=== PATIENT | male | born 1970 | race Two or more races ===

== ENCOUNTER 2017-01-30 16:19 | Inpatient (IN) | payer OTHER ==
[2017-01-30 16:29] VITALS: BMI 19.8
--- NOTE | 2017-01-30 16:29 | HP ---
COWS - Scale Resting Pulse: 1= [place] 81-100 Sweatin=Flushed/Facial Moisture Restless Observation: 3= Extraneous Movement Pupil Size: 2= Moderately Dilated Bone or Joint Aches: 2= Severe Diffuse Aches Runny Nose/ Eye Tearin= Runny Nose/Eyes GI Upset > 30mins: 3= Vomiting/Diarrhea Tremor Observation: 2= Slight Tremor Visible Yawning Observation: 2= >3x During Session Anxiety or Irritability: 2=Irritable/Anxious Goose Flesh Skin: 0=Smooth Skin COWS Score: 21 CIWA Score - CIWA Score Nausea/Vomitin Muscle Tremors: 3 Anxiety: 3 Agitation: 3 Paroxysmal Sweats: 2 Orientation: 0-Oriented Tacttile Disturbances: 2-Mild Itch/Numbness/Burn Auditory Disturbances: 2-Mild Harshness/Frighten Visual Disturbances: 2-Mild Sensitivity Headache: 2-Mild CIWA-Ar Total Score: 22 Admission ROS BHS - HPI Chief Complaint: i need help to stop using heroin and alcohol Allergies/Adverse Reactions: Allergies Allergy/AdvReac Type Severity Reaction Status Date / Time No Known Allergies Allergy Verified 01/30/17 18:43 History of Present Illness: this 46 years old male with heroin and alcohol dependence,seeking detox,last detox 08/07 [facility] several admissions in the past but relapsed nicotine dependence longest period of sobriety 2 years Exam Limitations: No Limitations - Ebola screening Have you traveled outside of the country in the last 21 days: No Have you had contact with anyone from an Ebola affected area: No Do you have a fever: No - Review of Systems Constitutional: Chills, Diaphoresis, Loss of Appetite, Malaise, Night Sweats, Changes in sleep, Weakness, Unintentional Wgt. Loss EENT: reports: Tearing, Nose Congestion Respiratory: reports: No Symptoms reported GI: reports: Diarrhea, Nausea, Poor Fluid Intake, Vomiting : reports: No Symptoms Reported Musculoskeletal: reports: Back Pain, Joint Pain, Muscle Pain, Joint Stiffness Integumentary: reports: Dryness Neuro: reports: Headache, Tremors Endocrine: reports: No Symptoms Reported Hematology: reports: No Symptoms Reported Psychiatric: reports: No Sypmtoms Reported, Judgement Intact, Mood/Affect Appropiate, Depressed Patient History - Patient Medical History Hx Anemia: No Hx Asthma: No Hx Chronic Obstructive Pulmonary Disease (COPD): No Hx Cancer: No Hx Cardiac Disorders: No Hx Congestive Heart Failure: No Hx Hypertension: No Hx Hypercholesterolemia: No Hx Pacemaker: No HX Cerebrovascular Accident: No Hx Seizures: No Hx Diabetes: No Hx Gastrointestinal Disorders: No Hx Genitourinary Disorders: No Hx Sexually Transmitted Disorders: No Hx Renal Disease (ESRD): No Hx Thyroid Disease: No Hx Human Immunodeficiency Virus (HIV): No (NEGATIVE HX last 01/06) Hx Hepatitis C: No Hx Depression: No Hx Suicide Attempt: No Hx Bipolar Disorder: No Hx Schizophrenia: No Other Medical History: no suicidal,no homicidal - Patient Surgical History Past Surgical History: Yes Hx Neurologic Surgery: No Hx Cataract Extraction: No Hx Cardiac Surgery: No Hx Lung Surgery: No Hx Breast Surgery: No Hx Breast Biopsy: No Hx Abdominal Surgery: No Hx Appendectomy: No Hx Cholecystectomy: No Hx Genitourinary Surgery: No Hx Section: No Hx Orthopedic Surgery: No Hx Hysterectomy: No Other Surgical History: ORAL SX DUE TO TRUAMA--WIRES AND SCREWS TO UPPER JAW.in 2015 Anesthesia Reaction: No - PPD History Previous Implant?: Yes Date: 04/19/16 Results: 0 mm PPD to be Administered?: No - Smoking Cessation Smoking history: Current every day smoker Have you smoked in the past 12 months: Yes Aproximately how many cigarettes per day: 2 Hx Chewing Tobacco Use: No Initiated information on smoking cessation: Yes 'Breaking Loose' booklet given: 01/30/17 - Substance & Tx. History Hx Alcohol Use: Yes Hx Substance Use: Yes Substance Use Type: Alcohol, Heroin Hx Substance Use Treatment: Yes ([facility] 08/07) - Substances Abused Heroin Route: Injection Frequency: Daily Amount used: 10 bags Age of first use: 19 Date of Last Use: 01/29/17 Alcohol Route: Oral Frequency: Daily Amount used: 2pints of vodka/6 packs of 24 ozs of beer Age of first use: 26 Date of Last Use: 01/30/17 Family Disease History - Family Disease History Family History: Denies Admission Physical Exam BHS - Vital Signs Vital Signs: Vital Signs Temperature 98.4 F 01/30/17 16:39 Pulse Rate 85 01/30/17 16:39 Respiratory Rate 20 01/30/17 16:39 Blood Pressure 116/74 01/30/17 16:39 O2 Sat by Pulse Oximetry (%) - Physical General Appearance: Yes: Moderate Distress, Tremorous, Irritable, Sweating, Anxious HEENTM: Yes: Normal ENT Inspection, CAREY, Pharynx Normal Respiratory: Yes: Lungs Clear, Normal Breath Sounds, No Respiratory Distress Neck: Yes: Within Normal Limits, Supple, Trachea in good position Breast: Yes: Within Normal Limits Cardiology: Yes: Within Normal Limits, Regular Rhythm, Regular Rate, S1, S2 Abdominal: Yes: Within Normal Limits, Normal Bowel Sounds, Non Tender, Soft Genitourinary: Yes: Within Normal Limits Back: Yes: Normal Inspection, Decreased Range of Motion, Muscle Spasm Musculoskeletal: Yes: full range of Motion, Back pain, Joint Stiffness, Muscle Pain Extremities: Yes: Tremors 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, Fully Oriented, Alert, Motor Strength 5/5 Integumentary: Yes: Dry, Track Jara Lymphatic: Yes: Within Normal Limits - Diagnostic (1) Alcohol dependence with uncomplicated withdrawal Current Visit: No Status: Acute (2) Opioid dependence with withdrawal Current Visit: No Status: Acute (3) Depression Current Visit: Yes Status: Acute (4) Nicotine dependence Current Visit: Yes Status: Acute Cleared for Admission [facility] - Detox or Rehab [facility] Level of Care: Medically Managed Detox Regimen/Protocol: Methadone/Librium S Breath Alcohol Content Breath Alcohol Content: 0.046 Vital Signs - Vital Signs Vital Signs Refused: No Temperature: 98.4 F Temperature Source: Oral Pulse Rate: 85 Respiratory Rate: 20 Blood Pressure: 116/74 BP Location: Left Arm - Height Height: 5 ft 6 in - Weight Weight: 123 lb Weight Measurement Method: Standing Scale Body Mass Index (BMI): 19.8 Urine Drug Screen - Test Device Lot Number: [id number] Expiration Date: 07/22/18 - Control Is Test Valid: Yes - Results Drug Screen Negative: No Urine Drug Screen Results: OPI-Opiates, MTD-Methadone
[2017-01-30] MEDS ORDERED: MAGNESIUM CITRATE 300 ML BOTTLE PO PRN (16:49)
[2017-01-30] MEDS ORDERED: METHADONE HCL 10 MG TABLET (FOR DETOX USE ONLY) PO ONE ×2 (16:49→23:00)
[2017-01-30] MEDS ORDERED: MAGNESIUM HYDROX 2400MG/30ML ORAL SUSPENSION 30 ML CUP PO PRN (16:49)
[2017-01-30] MEDS ORDERED: MENTHOL/PHENOL 1 EACH UD MM PRN (16:49)
[2017-01-30] MEDS ORDERED: hydrOXYzine PAMOATE 50 MG CAPSULE (FP) PO PRN (16:49)
[2017-01-30] MEDS ORDERED: P-EPHED 60MG/TRIPROLIDI 2.5MG TABLET PO PRN (16:49)
[2017-01-30] MEDS ORDERED: MAG HYDROX/AL HYDROX/SIMETH 30 ML UNIT-DOSE CUP PO PRN (16:49)
[2017-01-30] MEDS ORDERED: IBUPROFEN 400 MG TABLET (FP) PO PRN (16:49)
[2017-01-30] MEDS ORDERED: ACETAMINOPHEN 325 MG TABLET (FP) PO PRN (16:49)
[2017-01-30] MEDS ORDERED: chlordiazePOXIDE HCL 25 MG CAPSULE PO PRN (16:49)
[2017-01-30] MEDS ORDERED: guaiFENesin/D-METHORPHAN HB 10 ML UNIT-DOSE CUPS PO PRN (16:49)
[2017-01-30] MEDS ORDERED: chlordiazePOXIDE HCL 25 MG CAPSULE PO ONE (16:49)
[2017-01-30] MEDS ORDERED: CYCLOBENZAPRINE HCL 10 MG TABLET (FP) PO PRN (16:53)
[2017-01-30] MEDS: chlordiazePOXIDE HCL 25 MG CAPSULE PO SCH (22:18)
[2017-01-30] MEDS: THIAMINE HCL 100 MG TABLET (FP) PO SCH (22:18)
[2017-01-30] MEDS: cloNIDine HCL 0.1 MG TABLET PO SCH (22:48)
[2017-01-31] MEDS: diphenhydrAMINE HCL 50 MG CAPSULE PO PRN ×2 (00:40→02:02)
[2017-01-31] MEDS: chlordiazePOXIDE HCL 25 MG CAPSULE PO SCH ×4 (05:37→22:01)
--- NOTE | 2017-01-31 09:49 | PN ---
[facility] CIWA - CIWA Score Nausea/Vomitin Muscle Tremors: 3 Anxiety: 3 Agitation: 3 Paroxysmal Sweats: 1-Minimal Palms Moist Orientation: 0-Oriented Tacttile Disturbances: 1-Very Mild Itch/Numbness Auditory Disturbances: 1-Very Mild Visual Disturbances: 1-Very Mild Sensitivity Headache: 2-Mild CIWA-Ar Total Score: 18 BHS COWS - Scale Resting Pulse: 0= [place] 80 or Below Sweatin= Chills/Flushing Restless Observation: 3= Extraneous Movement Pupil Size: 1= Pupils >than Normal Bone or Joint Aches: 2= Severe Diffuse Aches Runny Nose/ Eye Tearin= Runny Nose/Eyes GI Upset > 30mins: 3= Vomiting/Diarrhea Tremor Observation of Outstretched Hands: 2= Slight Tremor Visible Yawning Observation: 1= 1-2x During Session Anxiety or Irritability: 2=Irritable/Anxious Goose Flesh Skin: 0=Smooth Skin COWS Score: 17 S Progress Note (SOAP) Subjective: ALERT,IRRITABLE,ANXIOUS,INTERRUPTED SLEEP,TREMOR,PAIN IN BODY,JOINT AND BACK Objective: 01/31/17 09:52 Vital Signs Temperature 97.9 F 01/31/17 09:45 Pulse Rate 75 01/31/17 09:45 Respiratory Rate 16 01/31/17 09:45 Blood Pressure 111/72 01/31/17 09:45 O2 Sat by Pulse Oximetry (%) 01/31/17 09:53 EKG NSR, NO CHEST PAIN,NO SOB,NO DIZZINESS LABS PENDING Assessment: 01/31/17 09:53 WITHDRAWAL SYMPTOM Plan: CONTINUE DETOX
[2017-01-31] MEDS ORDERED: METHADONE HCL 10 MG TABLET (FOR DETOX USE ONLY) PO SCH (10:00)
[2017-01-31] MEDS: cloNIDine HCL 0.1 MG TABLET PO SCH ×3 (10:09→22:03)
[2017-01-31] MEDS: PRENATAL VITAMINS W/ FOLIC ACID TABLET (FP) PO SCH (10:09)
[2017-01-31 10:16] LABS: URINE APPEARANCE CLEAR; URINE BLOOD NEGATIVE (NEGATIVE); URINE COLOR AMBER; URINE GLUCOSE (UA) NEGATIVE (NEGATIVE); URINE KETONE NEGATIVE (NEGATIVE); URINE LEUK ESTERASE NEGATIVE (NEGATIVE); URINE NITRITE NEGATIVE (NEGATIVE); URINE PROTEIN NEGATIVE (NEGATIVE); URINE UROBILINOGEN 4.0 E.U/dl E.U./dl (0.2-1.0)
[2017-01-31 10:17] LABS: MCH 32.5 pg (25.7-33.7); MCHC 33.8 g/dl (32.0-35.9); MEAN PLT VOLUME 9.2 fl (7.5-11.1); PLATELET COUNT 95 K/MM3 (134-434); RDW 12.9 % (11.9-15.9); WHITE BLOOD COUNT 2.5 K/mm3 (4.0-10.0)
[2017-01-31 10:26] LABS: ALBUMIN 3.4 g/dl (3.4-5.0); ANION GAP 9 (8-16); CALCIUM 8.6 mg/dL (8.5-10.1); CO2 29 mmol/L (21-32); COCKROFT - GAULT 92.01; CREATININE 0.8 mg/dL (0.7-1.3); GLUCOSE,RANDOM 130 mg/dL (74-106); SGOT/AST 59 U/L (15-37); SGPT/ALT 69 U/L (12-78)
[2017-01-31 10:27] LABS: ALK PHOS 65 U/L (45-117); BILIRUBIN,TOTAL 0.8 mg/dL (0.2-1.0); TOT PROT 6.2 g/dl (6.4-8.2)
--- NOTE | 2017-01-31 15:44 | EKG ---
Test Reason : Blood Pressure : / mmHG Vent. Rate : 086 BPM Atrial Rate : 086 BPM P-R Int : 136 ms QRS Dur : 086 ms QT Int : 346 ms P-R-T Axes : 075 015 020 degrees QTc Int : 414 ms NORMAL SINUS RHYTHM POSSIBLE LEFT ATRIAL ENLARGEMENT T WAVE ABNORMALITY, CONSIDER ANTERIOR ISCHEMIA ABNORMAL ECG NO PREVIOUS ECGS AVAILABLE CLINICAL CORRELATION IS RECOMMENDED Confirmed by CECILIA PRATT MD ([id number]) on 01/31/2017 3:44:33 PM Referred By: Confirmed By:CECILIA PRATT MD
[2017-01-31] MEDS: THIAMINE HCL 100 MG TABLET (FP) PO SCH (22:01)
[2017-02-01] MEDS: chlordiazePOXIDE HCL 25 MG CAPSULE PO SCH ×3 (05:14→17:34)
--- NOTE | 2017-02-01 09:10 | PN ---
[facility] CIWA - CIWA Score Nausea/Vomitin Muscle Tremors: 3 Anxiety: 2 Agitation: 2 Paroxysmal Sweats: 1-Minimal Palms Moist Orientation: 0-Oriented Tacttile Disturbances: 1-Very Mild Itch/Numbness Auditory Disturbances: 1-Very Mild Visual Disturbances: 1-Very Mild Sensitivity Headache: 2-Mild CIWA-Ar Total Score: 16 BHS COWS - Scale Resting Pulse: 0= [place] 80 or Below Sweatin= Chills/Flushing Restless Observation: 3= Extraneous Movement Pupil Size: 1= Pupils >than Normal Bone or Joint Aches: 2= Severe Diffuse Aches Runny Nose/ Eye Tearin= Runny Nose/Eyes GI Upset > 30mins: 2= Nausea/Diarrhea Tremor Observation of Outstretched Hands: 2= Slight Tremor Visible Yawning Observation: 1= 1-2x During Session Anxiety or Irritability: 2=Irritable/Anxious Goose Flesh Skin: 0=Smooth Skin COWS Score: 16 [facility] Progress Note (SOAP) Subjective: ALERT,IRRITABLE,ANXIOUS,INTERRUPTED SLEEP,TREMOR,PAIN IN THE BODY AND BACK Objective: 02/01/17 09:07 Vital Signs Temperature 97.7 F 02/01/17 05:46 Pulse Rate 67 02/01/17 05:46 Respiratory Rate 16 02/01/17 05:46 Blood Pressure 126/73 02/01/17 05:46 O2 Sat by Pulse Oximetry (%) Laboratory Last Values WBC 2.5 K/mm3 (4.0-10.0) L D 01/31/17 08:00 RBC 3.93 M/mm3 (4.00-5.60) L 01/31/17 08:00 Hgb 12.8 GM/dL (11.7-16.9) 01/31/17 08:00 Hct 37.7 % (35.4-49) 01/31/17 08:00 MCV 96.0 fl (80-96) 01/31/17 08:00 MCHC 33.8 g/dl (32.0-35.9) 01/31/17 08:00 RDW 12.9 % (11.9-15.9) 01/31/17 08:00 Plt Count 95 K/MM3 (134-434) L D 01/31/17 08:00 MPV 9.2 fl (7.5-11.1) 01/31/17 08:00 Sodium 137 mmol/L (136-145) 01/31/17 08:00 Potassium 3.7 mmol/L (3.5-5.1) D 01/31/17 08:00 Chloride 99 mmol/L (98-107) 01/31/17 08:00 Carbon Dioxide 29 mmol/L (21-32) 01/31/17 08:00 Anion Gap 9 (8-16) 01/31/17 08:00 BUN 19 mg/dL (7-18) H D 01/31/17 08:00 Creatinine 0.8 mg/dL (0.7-1.3) 01/31/17 08:00 Creat Clearance w eGFR > 60 (>60) 01/31/17 08:00 Random Glucose 130 mg/dL (74-106) H D 01/31/17 08:00 Calcium 8.6 mg/dL (8.5-10.1) 01/31/17 08:00 Total Bilirubin 0.8 mg/dL (0.2-1.0) D 01/31/17 08:00 AST 59 U/L (15-37) H D 01/31/17 08:00 ALT 69 U/L (12-78) D 01/31/17 08:00 Alkaline Phosphatase 65 U/L (45-117) D 01/31/17 08:00 Total Protein 6.2 g/dl (6.4-8.2) L D 01/31/17 08:00 Albumin 3.4 g/dl (3.4-5.0) 01/31/17 08:00 Urine Color [place] 01/31/17 08:00 Urine Appearance Clear 01/31/17 08:00 Urine pH 6.0 (5.0-8.0) 01/31/17 08:00 Ur Specific [place] 1.020 (1.005-1.025) 01/31/17 08:00 Urine Protein Negative (NEGATIVE) 01/31/17 08:00 Urine Glucose (UA) Negative (NEGATIVE) 01/31/17 08:00 Urine Ketones Negative (NEGATIVE) 01/31/17 08:00 Urine Blood Negative (NEGATIVE) 01/31/17 08:00 Urine Nitrite Negative (NEGATIVE) 01/31/17 08:00 Urine Bilirubin 2.0 (NEGATIVE) 01/31/17 08:00 Urine Urobilinogen 4.0 e.u/dl E.U./dl (0.2-1.0) 01/31/17 08:00 Ur Leukocyte Esterase Negative (NEGATIVE) 01/31/17 08:00 RPR Titer Nonreactive (NONREACTIVE) 01/31/17 08:00 Assessment: 02/01/17 09:08 WITHDRAWAL SYMPTOM Plan: CONTINUE DETOX,REPEAT CBC INITIAL WBC IS 2.500,LEUKOPENIA,INITIAL GLUCOSE IS 130 ,FASTING GLUCOSE IN AM
[2017-02-01] MEDS: METHADONE HCL 5 MG TABLET (FOR DETOX USE ONLY) PO SCH (10:07)
[2017-02-01] MEDS: PRENATAL VITAMINS W/ FOLIC ACID TABLET (FP) PO SCH (10:07)
[2017-02-01] MEDS: cloNIDine HCL 0.1 MG TABLET PO SCH ×2 (10:07→22:16)
--- NOTE | 2017-02-01 11:30 | CONSULT ---
[facility] Psychiatric Consult - Data Date of interview: 02/01/17 Admission source: [facility] Identifying data: This is 46 years old male with no psychiatric hospitalization history intoxicated with: Alcohol Nicotine, Opioids Substance Abuse History: - Smoking Cessation. Smoking history: Current every day smoker. Have you smoked in the past 12 months: Yes. Aproximately how many cigarettes per day: 2. Hx Chewing Tobacco Use: No. Initiated information on smoking cessation: Yes. 'Breaking Loose' booklet given: 01/30/17. - Substance & Tx. History. Hx Alcohol Use: Yes. Hx Substance Use: Yes. Substance Use Type : Alcohol, Heroin. Hx Substance Use Treatment: Yes ([facility] 08/07). - Substances Abused. Heroin. Route: Injection. Frequency: Daily. Amount used: 10 bags. Age of first use: 19. Date of Last Use: 01/29/17. Alcohol. Route: Oral. Frequency: Daily. Amount used: 2pints of vodka/6 packs of 24 ozs of beer. Age of first use: 26. Date of Last Use: 01/30/17 Medical History: Denies Psychiatric History: Reports history of dperession, reports no madicatione taking prior to admission Physical/Sexual Abuse/Trauma History: Denies Additional Comment: Observation. Detox Unit Care Protocol Mental Status Exam - Mental Status Exam Alert and Oriented to: Person Cognitive Function: Fair Patient Appearance: Unkempt Mood: Sad Affect: Flat Patient Behavior: Sedated Speech Pattern: Delayed Voice Loudness: Mildly Soft/Quiet Thought Process: Circumstantial Thought Disorder: Being Controlled Hallucinations: Denies Suicidal Ideation: Denies Homicidal Ideation: Denies Insight/Judgement: Fair Sleep: Difficulty falling asleep Appetite: Fair Muscle strength/Tone: Normal Gait/Station: Shuffling Additional Comments: Observation. Detox Unit Care Protocol Psychiatric Findings - Problem List ([place] 1, 2,3) (1) Nicotine dependence Current Visit: Yes Status: Acute (2) Alcohol dependence with uncomplicated withdrawal Current Visit: No Status: Acute (3) Opioid dependence with withdrawal Current Visit: No Status: Acute (4) Drug-induced mood disorder Current Visit: Yes Status: Acute - Initial Treatment Plan Initial Treatment Plan: Observation. Detox Unit Care Protocol
[2017-02-01] MEDS: chlordiazePOXIDE 5 MG CAPSULE PO SCH (22:15)
[2017-02-01] MEDS: THIAMINE HCL 100 MG TABLET (FP) PO SCH (22:15)
[2017-02-01] MEDS: diphenhydrAMINE HCL 50 MG CAPSULE PO PRN (22:19)
[2017-02-02] MEDS: chlordiazePOXIDE 5 MG CAPSULE PO SCH ×3 (05:24→17:14)
--- NOTE | 2017-02-02 09:53 | PN ---
S Progress Note (SOAP) Subjective: ALERT,IRRITABLE,ANXIOUS,INTERRUPTED SLEEP,PAIN IN THE BODY AND BACK Objective: 02/02/17 09:51 Vital Signs Temperature 97.5 F L 02/02/17 09:32 Pulse Rate 98 H 02/02/17 09:32 Respiratory Rate 20 02/02/17 09:32 Blood Pressure 107/64 02/02/17 09:32 O2 Sat by Pulse Oximetry (%) 02/02/17 09:52 REPEAT CBC AND FASTING GLUCOSE PENDING Assessment: 02/02/17 09:53 WITHDRAWAL SYMPTOM Plan: CONTINUE DETOX
[2017-02-02 09:55] LABS: MCH 32.3 pg (25.7-33.7); MEAN PLT VOLUME 9.6 fl (7.5-11.1); PLATELET COUNT 117 K/MM3 (134-434); RDW 12.7 % (11.9-15.9)
[2017-02-02] MEDS: PRENATAL VITAMINS W/ FOLIC ACID TABLET (FP) PO SCH (10:14)
[2017-02-02] MEDS: METHADONE HCL 5 MG TABLET (FOR DETOX USE ONLY) PO SCH (10:14)
[2017-02-02] MEDS: cloNIDine HCL 0.1 MG TABLET PO SCH ×2 (10:14→22:27)
[2017-02-02] MEDS: LOPERAMIDE HCL 2 MG CAPSULE PO PRN (17:27)
[2017-02-02] MEDS: THIAMINE HCL 100 MG TABLET (FP) PO SCH (22:27)
[2017-02-02] MEDS: chlordiazePOXIDE HCL 10 MG CAPSULE PO SCH (22:27)
[2017-02-02] MEDS: diphenhydrAMINE HCL 50 MG CAPSULE PO PRN (22:28)
[2017-02-03] MEDS: chlordiazePOXIDE HCL 10 MG CAPSULE PO SCH ×3 (06:12→18:04)
[2017-02-03] MEDS ORDERED: METHADONE HCL 10 MG TABLET (FOR DETOX USE ONLY) PO SCH (10:00)
--- NOTE | 2017-02-03 10:11 | PN ---
S Progress Note (SOAP) Subjective: alert,interrupted sleep,,anxious Objective: 02/03/17 10:08 Vital Signs Temperature 97.3 F L 02/03/17 09:35 Pulse Rate 103 H 02/03/17 09:35 Respiratory Rate 18 02/03/17 09:35 Blood Pressure 129/62 02/03/17 09:35 O2 Sat by Pulse Oximetry (%) 02/03/17 10:09 fasting glucose is 88 Laboratory Results - last 24 hr 02/02/17 07:00 Fasting Glucose 88 02/03/17 10:10 Laboratory Last Values WBC 4.0 K/mm3 (4.0-10.0) D 02/02/17 07:00 RBC 4.41 M/mm3 (4.00-5.60) 02/02/17 07:00 Hgb 14.3 GM/dL (11.7-16.9) D 02/02/17 07:00 Hct 41.9 % (35.4-49) 02/02/17 07:00 MCV 95.0 fl (80-96) 02/02/17 07:00 MCHC 34.0 g/dl (32.0-35.9) 02/02/17 07:00 RDW 12.7 % (11.9-15.9) 02/02/17 07:00 Plt Count 117 K/MM3 (134-434) L D 02/02/17 07:00 MPV 9.6 fl (7.5-11.1) 02/02/17 07:00 Sodium 137 mmol/L (136-145) 01/31/17 08:00 Potassium 3.7 mmol/L (3.5-5.1) D 01/31/17 08:00 Chloride 99 mmol/L (98-107) 01/31/17 08:00 Carbon Dioxide 29 mmol/L (21-32) 01/31/17 08:00 Anion Gap 9 (8-16) 01/31/17 08:00 BUN 19 mg/dL (7-18) H D 01/31/17 08:00 Creatinine 0.8 mg/dL (0.7-1.3) 01/31/17 08:00 Creat Clearance w eGFR > 60 (>60) 01/31/17 08:00 Random Glucose 130 mg/dL (74-106) H D 01/31/17 08:00 Fasting Glucose 88 mg/dL (70-105) 02/02/17 07:00 Calcium 8.6 mg/dL (8.5-10.1) 01/31/17 08:00 Total Bilirubin 0.8 mg/dL (0.2-1.0) D 01/31/17 08:00 AST 59 U/L (15-37) H D 01/31/17 08:00 ALT 69 U/L (12-78) D 01/31/17 08:00 Alkaline Phosphatase 65 U/L (45-117) D 01/31/17 08:00 Total Protein 6.2 g/dl (6.4-8.2) L D 01/31/17 08:00 Albumin 3.4 g/dl (3.4-5.0) 01/31/17 08:00 Urine Color [place] 01/31/17 08:00 Urine Appearance Clear 01/31/17 08:00 Urine pH 6.0 (5.0-8.0) 01/31/17 08:00 Ur Specific [place] 1.020 (1.005-1.025) 01/31/17 08:00 Urine Protein Negative (NEGATIVE) 01/31/17 08:00 Urine Glucose (UA) Negative (NEGATIVE) 01/31/17 08:00 Urine Ketones Negative (NEGATIVE) 01/31/17 08:00 Urine Blood Negative (NEGATIVE) 01/31/17 08:00 Urine Nitrite Negative (NEGATIVE) 01/31/17 08:00 Urine Bilirubin 2.0 (NEGATIVE) 01/31/17 08:00 Urine Urobilinogen 4.0 e.u/dl E.U./dl (0.2-1.0) 01/31/17 08:00 Ur Leukocyte Esterase Negative (NEGATIVE) 01/31/17 08:00 RPR Titer Nonreactive (NONREACTIVE) 01/31/17 08:00 Assessment: 02/03/17 10:08 withdrawal symptom 02/03/17 10:10 Plan: continue detox,discharge in am
[2017-02-03] MEDS: PRENATAL VITAMINS W/ FOLIC ACID TABLET (FP) PO SCH (10:15)
[2017-02-03] MEDS: cloNIDine HCL 0.1 MG TABLET PO SCH ×2 (10:15→22:07)
[2017-02-03] MEDS: THIAMINE HCL 100 MG TABLET (FP) PO SCH (22:07)
[2017-02-03] MEDS: diphenhydrAMINE HCL 50 MG CAPSULE PO PRN (22:08)
[2017-02-04] MEDS ORDERED: METHADONE HCL 5 MG TABLET (FOR DETOX USE ONLY) PO SCH (06:00)
[2017-02-04] MEDS: LOPERAMIDE HCL 2 MG CAPSULE PO PRN (06:17)
--- NOTE | 2017-02-04 08:23 | PN ---
S Progress Note (SOAP) Subjective: ALERT,NO COMPLAINT Objective: 02/04/17 08:21 Vital Signs Temperature 97.9 F 02/04/17 06:11 Pulse Rate 77 02/04/17 06:11 Respiratory Rate 16 02/04/17 06:11 Blood Pressure 93/63 02/04/17 06:11 O2 Sat by Pulse Oximetry (%) Assessment: 02/04/17 08:22 DETOX COMPLETED,NO WITHDRAWAL SYMPTOM Plan: DISCHARGE TODAY,FOLLOW UP WITH AFTER CARE PROGRAM ARRANGEMENT
--- NOTE | 2017-02-04 08:25 | DS ---
[facility] Detox Discharge Summary Admission Date: 01/30/17 Discharge Date: 02/04/17 - History Present History: Cannabis Dependence, Opioid Dependence Additional Comments: FOLLOW UP WITH AFTER CARE PROGRAM ARRANGEMENT Pertinent Past History: DEPRESSION - Physical Exam Results Vital Signs: Vital Signs Temperature 97.9 F 02/04/17 06:11 Pulse Rate 77 02/04/17 06:11 Respiratory Rate 16 02/04/17 06:11 Blood Pressure 93/63 02/04/17 06:11 O2 Sat by Pulse Oximetry (%) Pertinent Admission Physical Exam Findings: WITHDRAWAL SYMPTOM - Treatment Hospital Course: Detox Protocol Followed, Detoxed Safely, Responded well, Discharged Condition Good, Rehab Referral Accepted Patient has Accepted a Rehab Referral to: [facility] - Medication Discharge Medications: Ambulatory Orders NK [No Known Home Medication] 04/17/16 - Diagnosis (1) Alcohol dependence with uncomplicated withdrawal Current Visit: No Status: Acute (2) Opioid dependence with withdrawal Current Visit: No Status: Acute (3) Depression Current Visit: Yes Status: Acute (4) Nicotine dependence Current Visit: Yes Status: Acute - AMA Did Patient Leave Against Medical Advice: No
[2017-02-04 09:43] VITALS: BP 120/67; PULSE 97; TEMP 98.1
[2017-02-04] MEDS: PRENATAL VITAMINS W/ FOLIC ACID TABLET (FP) PO SCH (10:13)
[2017-02-04] MEDS: cloNIDine HCL 0.1 MG TABLET PO SCH (10:14)
== END 2017-02-04 11:50 | disposition other institution (70) | DRG 773 ==
LOC: YASAS 16:19 → Y6N 16:47
PROVIDERS: ADMIT Internal Medicine; ATTEND Internal Medicine
PROC: HZ2ZZZZ Detoxification Services for Substance Abuse Treatment (ICD-10-PCS; principal; 2017-01-30)
DX: F11.23 Opioid dependence with withdrawal (principal); F10.230 Alcohol dependence with withdrawal, uncomplicated; F17.210 Nicotine dependence, cigarettes, uncomplicated; F32.9 Major depressive disorder, single episode, unspecified; F19.24 Other psychoactive substance dependence with psychoactive substance-induced mood disorder; Z59.0 Homelessness
CPT/HCPCS: 36415; 80053; 81003; 82947; 85027; 86593; 93005; 93010

== ENCOUNTER 2017-02-04 12:04 | Inpatient (IN) | payer OTHER ==
--- NOTE | 2017-02-04 13:47 | HP ---
Psychiatrist Admission - Data Date of interview: 02/04/17 Admission source: [facility] Identifying data: This is the second [facility] admission for this 46 years old single male, father of 2 children, unemployed with no source of income, domiciled living with his brother Medical History: Significant for history of oral surgery for fracture of jaw due to trauma(wires and screw to upper jaw), smokes 2 cigarettes a day. Psychiatric History: Denies history of previous psychiatric treatment Physical/Sexual Abuse/Trauma History: Denies history of emotional, physical or sexual abuse as well as DV relationship Additional Comment: Reportss history of 4 previous misdemeanor arrests for trespassing. Denies being on probation at present Allergies/Adverse Reactions: Allergies Allergy/AdvReac Type Severity Reaction Status Date / Time No Known Allergies Allergy Verified 01/30/17 18:43 Date of last physical exam: 01/30/17 Concur with the findings of this exam: Yes - Substance Abuse/Tx History Hx Alcohol Use: Yes Hx Substance Use: Yes Substance Use Type: Alcohol (Started drinking alcohol at age 26, consumes 2 pints of vodka & a 6pk of 24oz daily. Last drink on 01/29/17), Heroin (Started using heroin at age 19, consumes 10 bags daily. Last used on 01/29/17) Hx Substance Use Treatment: Yes ( 2 previous inpt detox & one incomplete inpt rehab @ [facility]) - Admission Criteria Previous failed treatment: Yes Poor recovery environment: Yes Comorbidities: Yes Lacks judgement: Yes Mental Status Exam - Mental Status Exam Alert and Oriented to: Time, Place, Person Cognitive Function: Fair Patient Appearance: Well Groomed Mood: Hopeful, Euthymic Patient Behavior: Cooperative Speech Pattern: Clear Voice Loudness: Normal Thought Process: Intact, Goal Oriented Thought Disorder: Not Present Hallucinations: Denies Suicidal Ideation: Denies Homicidal Ideation: Denies Insight/Judgement: Fair Sleep: Fair Appetite: Good Muscle strength/Tone: Normal Gait/Station: Normal Psychiatric Findings - Problem List ([place] 1, 2,3) (1) Alcohol dependence with uncomplicated withdrawal Current Visit: No Status: Acute (2) Opioid dependence with withdrawal Current Visit: No Status: Acute (3) Nicotine dependence Current Visit: No Status: Acute - Initial Treatment Plan Initial Treatment Plan: Monitor progress
[2017-02-04 14:16] VITALS: BMI 21.1
[2017-02-04] MEDS ORDERED: MAG HYDROX/AL HYDROX/SIMETH 30 ML UNIT-DOSE CUP PO PRN (14:20)
[2017-02-04] MEDS ORDERED: MAGNESIUM CITRATE 300 ML BOTTLE PO PRN (14:20)
[2017-02-04] MEDS ORDERED: hydrOXYzine PAMOATE 50 MG CAPSULE (FP) PO PRN (14:20)
[2017-02-04] MEDS ORDERED: MENTHOL/PHENOL 1 EACH UD MM PRN (14:20)
[2017-02-04] MEDS ORDERED: guaiFENesin/D-METHORPHAN HB 10 ML UNIT-DOSE CUPS PO PRN (14:20)
[2017-02-04] MEDS ORDERED: LOPERAMIDE HCL 2 MG CAPSULE PO PRN (14:20)
[2017-02-04] MEDS ORDERED: ACETAMINOPHEN 325 MG TABLET (FP) PO PRN (14:20)
[2017-02-04] MEDS ORDERED: diphenhydrAMINE HCL 50 MG CAPSULE PO PRN (14:20)
[2017-02-04] MEDS ORDERED: P-EPHED 60MG/TRIPROLIDI 2.5MG TABLET PO PRN (14:20)
[2017-02-04] MEDS ORDERED: MAGNESIUM HYDROX 2400MG/30ML ORAL SUSPENSION 30 ML CUP PO PRN (14:20)
[2017-02-04] MEDS ORDERED: IBUPROFEN 400 MG TABLET (FP) PO PRN (14:20)
--- NOTE | 2017-02-04 14:23 | HP ---
[facility] Rehab Assess/Revision - Admission History Admitted to Rehab from: [facility] Date of Admission to Rehab: 02/04/17 - Vital signs Vital Signs: Vital Signs Period Temp Pulse Resp BP Sys/[place] Pulse Ox Last 24 Hr 97.8 F 91 20 111/67 - Findings Detox History & Physical reviewed: Yes Concur with findings: Yes (for reha as protocol)
[2017-02-04] MEDS ORDERED: THIAMINE HCL 100 MG TABLET (FP) PO SCH (22:00)
[2017-02-05 06:49] VITALS: BP 107/80; PULSE 99; TEMP 97.7
[2017-02-05] MEDS ORDERED: PRENATAL VITAMINS W/ FOLIC ACID TABLET (FP) PO SCH (10:00)
--- NOTE | 2017-02-05 13:05 | PN ---
Psychiatric Progress Note Vital Signs: Vital Signs Period Temp Pulse Resp BP Sys/[place] Pulse Ox Last 24 Hr 97.7 F-97.8 F 91-99 18-20 107-111/67-80 Date of Session: 02/05/17 Chief Complaint:: AMA Discharge HPI: Patient addressing Alcohol and Opoid Dependence Comorbid with Nicotine Dependence Current Medications: Active Medications Generic Name Dose Route Start Last Admin Trade Name Freq PRN Reason Stop Dose Admin Acetaminophen 650 mg 02/04/17 14:20 Tylenol - PO Q4H PRN FEVER OR PAIN Al Hydroxide/Mg Hydroxide 30 ml 02/04/17 14:20 Mylanta Oral Suspension - PO Q6H PRN DYSPEPSIA Diphenhydramine HCl 50 mg 02/04/17 14:20 Benadryl - PO HSMR1 PRN FOR ITCHING Eucalyptus/Menthol/Phenol/Sorbitol 1 each 02/04/17 14:20 Cepastat Lozenge - MM Q4H PRN SORE THROAT Guaifenesin 10 ml 02/04/17 14:20 Robitussin Dm - PO Q6H PRN COUGH Hydroxyzine Pamoate 50 mg 02/04/17 14:20 Vistaril - PO Q4H PRN AGITATION Ibuprofen 400 mg 02/04/17 14:20 Motrin - PO Q6H PRN PAIN Loperamide HCl 4 mg 02/04/17 14:20 Imodium - PO Q6H PRN DIARRHEA Magnesium Citrate 300 ml 02/04/17 14:20 Citroma - PO 02/06/17 14:21 Q48H PRN CONSTIPATION Magnesium Hydroxide 30 ml 02/04/17 14:20 Milk Of Magnesia - PO DAILY PRN CONSTIPATION Multivit/Folic Acid/Iron 1 tab 02/05/17 10:00 02/05/17 10:16 Vitamins ([facility]) - PO Not Given DAILY HUAN Pseudoephedrine/Triprolidine 1 combo 02/04/17 14:20 Actifed - PO TID PRN NASAL CONGESTION Thiamine HCl 100 mg 02/04/17 22:00 02/04/17 23:16 Vitamin B1 - PO Not Given HS HUAN Current Side Effect: No Lab tests ordered: Yes Lab tests reviewed: Yes Provider note:: Patient does not want to complete this program because he cannot talk to his daughter from here. Told food writer that his daughter is incarcerated in [place] for accesory to murder. He said that she calls him often but he will not be able to talk to her while he is in the program. [employer] Laboratory Assistant told that his daughter knew about the situation she would most likely prefer that he completed the program. He was also told that in life, one has priority meaning he should prioritize between completing this program and talking to his daughter whom he has no power over her judith. Despite all this argument to encourage patient to stay and complete the program, he was determined to leave against medical advice. Patient is stable to leave [place] Total face to face time:: 25 Mental Status Exam - Mental Status Exam Alert and Oriented to: Time, Place, Person Cognitive Function: Fair Mood: Hopeful, Euthymic Affect: Appropriate Patient Behavior: Cooperative Speech Pattern: Clear Voice Loudness: Normal Thought Process: Intact, Goal Oriented Thought Disorder: Not Present Hallucinations: Denies Suicidal Ideation: Denies Insight/Judgement: Fair Sleep: Fair Appetite: Good Muscle strength/Tone: Normal Gait/Station: Normal Psychiatric Treatment Plan - Problem List (1) Alcohol dependence with uncomplicated withdrawal Current Visit: No (2) Opioid dependence with withdrawal Current Visit: No (3) Nicotine dependence Current Visit: No Initial treatment plan: Patient is leaving [facility]
== END 2017-02-05 13:00 | disposition left against medical advice (07) | DRG 770 ==
LOC: YASAS 12:04 → Y3W 12:05
PROVIDERS: ADMIT Psychiatry & Neurology Psychiatry; ATTEND Psychiatry & Neurology Psychiatry
PROC: HZ42ZZZ Group Counseling for Substance Abuse Treatment, Cognitive-Behavioral (ICD-10-PCS; principal; 2017-02-04)
DX: F11.20 Opioid dependence, uncomplicated (principal); F10.20 Alcohol dependence, uncomplicated; F17.210 Nicotine dependence, cigarettes, uncomplicated

== ENCOUNTER 2017-09-11 10:56 | Inpatient (IN) | payer OTHER ==
--- NOTE | 2017-09-11 13:20 | HP ---
COWS - Scale Resting Pulse: 1= [place] 81-100 Sweatin= Chills/Flushing Restless Observation: 0= Sits Still Pupil Size: 0= Normal to Room Light Bone or Joint Aches: 1= Mild Discomfort Runny Nose/ Eye Tearin= Nasal Congestion GI Upset > 30mins: 1= Stomach Cramp Tremor Observation: 1= Tremor [place], Not Seen Yawning Observation: 1= 1-2x During Session Anxiety or Irritability: 1=Feels Anxious/Irritable Goose Flesh Skin: 0=Smooth Skin COWS Score: 8 CIWA Score - CIWA Score Nausea/Vomitin-Mild Nausea/No Vomiting Muscle Tremors: 4-Moderate,w/Arms Extend Anxiety: 4-Mod. Anxious/Guarded Agitation: 1-Slight > Activity Paroxysmal Sweats: No Perspiration Orientation: 1-Uncertain about Date Tacttile Disturbances: 0-None Auditory Disturbances: 0-None Visual Disturbances: 0-None Headache: 1-Very Mild CIWA-Ar Total Score: 12 Admission ROS BHS - HPI Chief Complaint: I want to stop, I'm tired, I want detox Allergies/Adverse Reactions: Allergies Allergy/AdvReac Type Severity Reaction Status Date / Time No Known Allergies Allergy Verified 09/11/17 14:13 History of Present Illness: 47 y gentleman here for detox from opiates and alcohol - no seizures, does have black outs sometimes. Last time in detox here , January 2017. Interested in methadone or suboxone program upon discharge. Exam Limitations: Clinical Condition - Ebola screening Have you traveled outside of the country in the last 21 days: No (N) Have you had contact with anyone from an Ebola affected area: No Have you been sick,other than usual withdrawal symptoms: No Do you have a fever: No - Review of Systems Constitutional: Loss of Appetite, Malaise EENT: reports: Nose Congestion Respiratory: reports: No Symptoms reported Cardiac: reports: No Symptoms Reported GI: reports: Poor Appetite : reports: No Symptoms Reported Musculoskeletal: reports: Back Pain, Muscle Pain Integumentary: reports: No Symptoms Reported Neuro: reports: Headache Endocrine: reports: No Symptoms Reported Hematology: reports: No Symptoms Reported Psychiatric: reports: Judgement Intact, Mood/Affect Appropiate, Anxious Other Systems: Reviewed and Negative Patient History - Patient Medical History Hx Anemia: No Hx Asthma: No Hx Chronic Obstructive Pulmonary Disease (COPD): No Hx Cancer: No Hx Cardiac Disorders: No Hx Congestive Heart Failure: No Hx Hypertension: No Hx Hypercholesterolemia: No Hx Pacemaker: No HX Cerebrovascular Accident: No Hx Seizures: No Hx Diabetes: No Hx Gastrointestinal Disorders: No Hx Genitourinary Disorders: No Hx Sexually Transmitted Disorders: No Hx Renal Disease (ESRD): No Hx Thyroid Disease: No Hx Human Immunodeficiency Virus (HIV): No (NEGATIVE HX last 01/06) Hx Hepatitis C: No Hx Depression: Yes (no meds, 'something happened' - teary) Hx Suicide Attempt: No Hx Bipolar Disorder: No Hx Schizophrenia: No - Patient Surgical History Past Surgical History: Yes Hx Neurologic Surgery: No Hx Cataract Extraction: No Hx Cardiac Surgery: No Hx Lung Surgery: No Hx Breast Surgery: No Hx Breast Biopsy: No Hx Abdominal Surgery: No Hx Appendectomy: No Hx Cholecystectomy: No Hx Genitourinary Surgery: No Hx Section: No Hx Orthopedic Surgery: No Hx Hysterectomy: No Other Surgical History: ORAL SX DUE TO TRUAMA--WIRES AND SCREWS TO UPPER JAW.in 2015 Anesthesia Reaction: No - PPD History Date: 04/19/16 Results: 0 MM - Reproductive History Patient is a Female of Child Bearing Age (11 -55 yrs old): No (male) - Smoking Cessation Smoking history: Former smoker Have you smoked in the past 12 months: No Aproximately how many cigarettes per day: 2 Hx Chewing Tobacco Use: No Initiated information on smoking cessation: No - Substance & Tx. History Hx Alcohol Use: Yes Hx Substance Use: Yes Substance Use Type: Alcohol, Heroin, Opiates Hx Substance Use Treatment: Yes (detox) - Substances Abused Alcohol Route: Oral Frequency: Daily Age of first use: 31 Date of Last Use: 09/11/17 Non-Rx Methadone Route: Oral Frequency: 1-2 times per week Amount used: 40mg Age of first use: 31 Date of Last Use: 09/08/17 Heroin Route: Injection Amount used: 8 bags Age of first use: 31 Date of Last Use: 09/10/17 Family Disease History - Family Disease History Family Disease History: Other: Father (, murdered), Mother (living, healthy), Brother (five - living - healthy), Sister (two - living -healthy), Son (adult - healthy - [facility]), Daughter (adult - healthy - [place]) Admission Physical Exam [facility] - Vital Signs Vital Signs: Vital Signs - 24 hr 09/11/17 11:06 Temperature 97.0 F L Pulse Rate 87 Respiratory 18 Rate Blood Pressure 135/91 - Physical General Appearance: Yes: Nourished, Appropriately Dressed, Mild Distress HEENTM: Yes: Hearing grossly Normal, Normal ENT Inspection, Normocephalic, Normal Voice, Other (due to history of jaw surgery sometimes has trouble chewing food) Respiratory: Yes: Normal Breath Sounds, No Respiratory Distress Neck: Yes: No masses,lesions,Nodules, Supple Breast: Yes: Breast Exam Deferred Cardiology: Yes: Regular Rhythm, Regular Rate Abdominal: Yes: Non Tender, Flat Genitourinary: Yes: Within Normal Limits Back: Yes: Normal Inspection Musculoskeletal: Yes: full range of Motion, Gait Steady Extremities: Yes: Normal Inspection, Non-Tender Neurological: Yes: Fully Oriented, Alert, Normal Mood/Affect, Normal Response Integumentary: Yes: Normal Color, Warm, Track Jara (left arm, no abscess noted) Lymphatic: Yes: Within Normal Limits - Diagnostic (1) Alcohol dependence with uncomplicated withdrawal Current Visit: Yes Status: Chronic (2) Opioid dependence with withdrawal Current Visit: Yes Status: Chronic (3) Chewing difficulty Current Visit: Yes Status: Chronic Cleared for Admission [facility] - Detox or Rehab [facility] Level of Care: Medically Managed Detox Regimen/Protocol: Methadone/Librium [facility] Breath Alcohol Content Breath Alcohol Content: 0 Urine Drug Screen - Results Drug Screen Negative: No Urine Drug Screen Results: OPI-Opiates, MTD-Methadone
[2017-09-11] MEDS ORDERED: P-EPHED 60MG/TRIPROLIDI 2.5MG TABLET PO PRN (13:33)
[2017-09-11] MEDS ORDERED: ACETAMINOPHEN 325 MG TABLET (FP) PO PRN (13:33)
[2017-09-11] MEDS ORDERED: MENTHOL/PHENOL 1 EACH UD MM PRN (13:33)
[2017-09-11] MEDS ORDERED: IBUPROFEN 400 MG TABLET (FP) PO PRN (13:33)
[2017-09-11] MEDS ORDERED: MAG HYDROX/AL HYDROX/SIMETH 30 ML UNIT-DOSE CUP PO PRN (13:33)
[2017-09-11] MEDS ORDERED: MAGNESIUM CITRATE 300 ML BOTTLE PO PRN (13:33)
[2017-09-11] MEDS ORDERED: guaiFENesin/D-METHORPHAN HB 10 ML UNIT-DOSE CUPS PO PRN (13:33)
[2017-09-11] MEDS ORDERED: LOPERAMIDE HCL 2 MG CAPSULE PO PRN (13:33)
[2017-09-11] MEDS ORDERED: MAGNESIUM HYDROX 2400MG/30ML ORAL SUSPENSION 30 ML CUP PO PRN (13:33)
[2017-09-11] MEDS ORDERED: METHADONE HCL 10 MG TABLET (FOR DETOX USE ONLY) PO ONE ×2 (15:00→23:00)
[2017-09-11] MEDS: chlordiazePOXIDE HCL 25 MG CAPSULE PO PRN (15:11)
--- NOTE | 2017-09-11 15:16 | EKG ---
Test Reason : Blood Pressure : / mmHG Vent. Rate : 083 BPM Atrial Rate : 083 BPM P-R Int : 130 ms QRS Dur : 076 ms QT Int : 380 ms P-R-T Axes : 082 028 066 degrees QTc Int : 446 ms NORMAL SINUS RHYTHM NORMAL ECG WHEN COMPARED WITH ECG OF 30-JAN-2017 17:02, NONSPECIFIC T WAVE ABNORMALITY NO LONGER EVIDENT IN INFERIOR LEADS T WAVE INVERSION NO LONGER EVIDENT IN ANTERIOR LEADS Confirmed by Naeem Yu ([id number]) on 09/11/2017 3:15:29 PM Referred By: Confirmed By:Naeem Yu
[2017-09-11] MEDS: chlordiazePOXIDE HCL 25 MG CAPSULE PO SCH ×2 (17:34→22:15)
[2017-09-11 19:48] LABS: URINE APPEARANCE TURBID; URINE BILIRUBIN NEGATIVE (NEGATIVE); URINE BLOOD 1+ (NEGATIVE); URINE COLOR AMBER; URINE GLUCOSE (UA) NEGATIVE (NEGATIVE); URINE KETONE NEGATIVE (NEGATIVE); URINE LEUK ESTERASE NEGATIVE (NEGATIVE); URINE NITRITE POSITIVE (NEGATIVE); URINE PROTEIN NEGATIVE (NEGATIVE)
[2017-09-11 19:53] LABS: EPI CELLS RARE /HPF (FEW); URINE BACTERIA FEW /hpf (NONE SEEN); URINE HYALINE CAST 2 /lpf; URINE MUCUS MANY
[2017-09-11] MEDS: THIAMINE HCL 100 MG TABLET (FP) PO SCH (22:15)
[2017-09-12] MEDS: chlordiazePOXIDE HCL 25 MG CAPSULE PO PRN (01:08)
[2017-09-12] MEDS: hydrOXYzine PAMOATE 25 MG CAPSULE (FP) PO PRN ×2 (01:08→22:56)
[2017-09-12] MEDS: chlordiazePOXIDE HCL 25 MG CAPSULE PO SCH ×4 (05:35→22:30)
--- NOTE | 2017-09-12 07:10 | CONSULT ---
[facility] Psychiatric Consult - Data Date of interview: 09/12/17 Admission source: Self-referred Identifying data: Mr Luis is a 47 years old single male, father of 2 children, unemployed, living with his brother seeking detox treatment for alcohol, heroin and street methadone Substance Abuse History: Reports history of alcohol and opoid use. Refer to addiction counselor's note for further information Medical History: Significant for history of oral surgery for fracture of jaw due to trauma(wires and screw to upper jaw), smokes 2 cigarettes a day. Psychiatric History: Denies history of previous psychiatric treatment Physical/Sexual Abuse/Trauma History: Denies history of emotional, physical or sexual abuse as well as DV relationship Additional Comment: Reports history of 4 previous misdemeanor arrests for trespassing. Denies being on probation at present Mental Status Exam - Mental Status Exam Alert and Oriented to: Time, Place, Person Cognitive Function: Fair Patient Appearance: Well Groomed Mood: Hopeful, Euthymic Affect: Appropriate Patient Behavior: Cooperative Speech Pattern: Clear Voice Loudness: Normal Thought Process: Intact, Goal Oriented Hallucinations: Denies Suicidal Ideation: Denies Homicidal Ideation: Denies Insight/Judgement: Good Sleep: Well Appetite: Good Muscle strength/Tone: Normal Gait/Station: Normal Psychiatric Findings - Problem List ([place] 1, 2,3) (1) Alcohol dependence with uncomplicated withdrawal Current Visit: Yes Status: Acute (2) Opioid dependence with withdrawal Current Visit: Yes Status: Acute (3) Nicotine dependence Current Visit: No Status: Chronic - Initial Treatment Plan Initial Treatment Plan: Continue inpatient detoxification
[2017-09-12] MEDS ORDERED: METHADONE HCL 10 MG TABLET (FOR DETOX USE ONLY) PO SCH (10:00)
[2017-09-12] MEDS: PRENATAL VITAMINS W/ FOLIC ACID TABLET (FP) PO SCH (10:05)
--- NOTE | 2017-09-12 16:07 | PN ---
[facility] CIWA - CIWA Score Nausea/Vomitin Muscle Tremors: 3 Anxiety: 4-Mod. Anxious/Guarded Agitation: 4-Moderately Restless Paroxysmal Sweats: 3 Orientation: 0-Oriented Tacttile Disturbances: 1-Very Mild Itch/Numbness Auditory Disturbances: 0-None Visual Disturbances: 0-None Headache: 0-None Present CIWA-Ar Total Score: 17 [facility] COWS - Scale Resting Pulse: 0= [place] 80 or Below Sweatin= Chills/Flushing Restless Observation: 3= Extraneous Movement Pupil Size: 0= Normal to Room Light Bone or Joint Aches: 2= Severe Diffuse Aches Runny Nose/ Eye Tearin= Runny Nose/Eyes GI Upset > 30mins: 1= Stomach Cramp Tremor Observation of Outstretched Hands: 2= Slight Tremor Visible Yawning Observation: 1= 1-2x During Session Anxiety or Irritability: 2=Irritable/Anxious Goose Flesh Skin: 0=Smooth Skin COWS Score: 14 [facility] Progress Note (SOAP) Subjective: Interrupted sleep, sweating, anxious Objective: 09/12/17 16:04 Last Vital Signs Temp Pulse Resp BP Pulse Ox 98.6 F 77 20 116/71 09/12/17 13:25 09/12/17 13:25 09/12/17 13:25 09/12/17 13:25 Laboratory Tests 09/11/17 19:00 Urine Color [place] Urine Appearance Turbid Urine pH 5.0 Ur Specific [place] 1.026 Urine Protein Negative Urine Glucose (UA) Negative Urine Ketones Negative Urine Blood 1+ H Urine Nitrite Positive Urine Bilirubin Negative Urine Urobilinogen 2.0 Ur Leukocyte Esterase Negative Urine WBC (Auto) 8 Urine RBC (Auto) 14 Ur Epithelial Cells Rare Urine Bacteria Few Hyaline Casts 2 Urine Mucus Many Labs noted: UA shows nitrite positive Assessment: 09/12/17 16:05 Withdrawal symptoms Noted with Acute UTI Plan: Continue detox Acute UTI: encouraged to drink more water, send urine culture stat, start levaquin 500mg PO daily x 10 days (first dose today), follow up with PCP in 2 weeks post discharge for further evaluation
[2017-09-12] MEDS: LEVOFLOXACIN 500 MG TABLET (FP) PO SCH (17:39)
[2017-09-12] MEDS: THIAMINE HCL 100 MG TABLET (FP) PO SCH (22:29)
[2017-09-13] MEDS: chlordiazePOXIDE HCL 25 MG CAPSULE PO SCH ×2 (05:38→10:29)
[2017-09-13] MEDS: LEVOFLOXACIN 500 MG TABLET (FP) PO SCH (10:29)
[2017-09-13] MEDS: PRENATAL VITAMINS W/ FOLIC ACID TABLET (FP) PO SCH (10:29)
[2017-09-13] MEDS: METHADONE HCL 5 MG TABLET (FOR DETOX USE ONLY) PO SCH (10:29)
--- NOTE | 2017-09-13 11:44 | PN ---
[facility] CIWA - CIWA Score Nausea/Vomitin-No Nausea/No Vomiting Muscle Tremors: 4-Moderate,w/Arms Extend Anxiety: 4-Mod. Anxious/Guarded Agitation: 4-Moderately Restless Paroxysmal Sweats: 1-Minimal Palms Moist Orientation: 0-Oriented Tacttile Disturbances: 3-Moderate Itch/Numb/Burn Auditory Disturbances: 0-None Visual Disturbances: 0-None Headache: 0-None Present CIWA-Ar Total Score: 16 [facility] COWS - Scale Resting Pulse: 1= [place] 81-100 Sweatin= Chills/Flushing Restless Observation: 3= Extraneous Movement Pupil Size: 0= Normal to Room Light Bone or Joint Aches: 4=Acute Joint/Muscle Pain Runny Nose/ Eye Tearin= Nasal Congestion GI Upset > 30mins: 1= Stomach Cramp Tremor Observation of Outstretched Hands: 1= Tremor [place], Not Seen Yawning Observation: 1= 1-2x During Session Anxiety or Irritability: 2=Irritable/Anxious Goose Flesh Skin: 0=Smooth Skin COWS Score: 15 [facility] Progress Note (SOAP) Subjective: SLIGHT ANXIETY,SWEATS, FATIGUE. Objective: 09/13/17 11:43 Vital Signs Temperature 96.7 F L 09/13/17 09:41 Pulse Rate 75 09/13/17 09:41 Respiratory Rate 18 09/13/17 09:41 Blood Pressure 117/70 09/13/17 09:41 O2 Sat by Pulse Oximetry (%) Laboratory Last Values Urine Color [place] 09/11/17 19:00 Urine Appearance Turbid 09/11/17 19:00 Urine pH 5.0 (5.0-8.0) 09/11/17 19:00 Ur Specific [place] 1.026 (1.001-1.035) 09/11/17 19:00 Urine Protein Negative (NEGATIVE) 09/11/17 19:00 Urine Glucose (UA) Negative (NEGATIVE) 09/11/17 19:00 Urine Ketones Negative (NEGATIVE) 09/11/17 19:00 Urine Blood 1+ (NEGATIVE) H 09/11/17 19:00 Urine Nitrite Positive (NEGATIVE) 09/11/17 19:00 Urine Bilirubin Negative (NEGATIVE) 09/11/17 19:00 Urine Urobilinogen 2.0 mg/dL (0.2-1.0) 09/11/17 19:00 Ur Leukocyte Esterase Negative (NEGATIVE) 09/11/17 19:00 Urine WBC (Auto) 8 /hpf (3-5) 09/11/17 19:00 Urine RBC (Auto) 14 /hpf (0-3) 09/11/17 19:00 Ur Epithelial Cells Rare /HPF (FEW) 09/11/17 19:00 Urine Bacteria Few /hpf (NONE SEEN) 09/11/17 19:00 Hyaline Casts 2 /lpf 09/11/17 19:00 Urine Mucus Many 09/11/17 19:00 UA NOTED ALREADY ON LEVAQUIN Assessment: 09/13/17 11:43 WITHDRAWAL SX UTI Plan: CONTINUE DETOX
[2017-09-13] MEDS: chlordiazePOXIDE 5 MG CAPSULE PO SCH ×2 (17:26→22:14)
[2017-09-13] MEDS: THIAMINE HCL 100 MG TABLET (FP) PO SCH (22:14)
[2017-09-14] MEDS: hydrOXYzine PAMOATE 25 MG CAPSULE (FP) PO PRN ×2 (01:13→22:04)
[2017-09-14] MEDS: chlordiazePOXIDE 5 MG CAPSULE PO SCH ×2 (06:16→10:35)
[2017-09-14] MEDS: PRENATAL VITAMINS W/ FOLIC ACID TABLET (FP) PO SCH (10:35)
[2017-09-14] MEDS: METHADONE HCL 5 MG TABLET (FOR DETOX USE ONLY) PO SCH (10:35)
[2017-09-14] MEDS: LEVOFLOXACIN 500 MG TABLET (FP) PO SCH (10:36)
--- NOTE | 2017-09-14 10:42 | PN ---
[facility] Progress Note (SOAP) Subjective: ANXIETY,SWEAT,SLIGHTLY DROWSY,FATIGUE Objective: 09/14/17 10:42 Vital Signs Temperature 97.5 F L 09/14/17 09:56 Pulse Rate 76 09/14/17 09:56 Respiratory Rate 18 18 09:56 Blood Pressure 118/68 09/14/17 09:56 O2 Sat by Pulse Oximetry (%) Laboratory Last Values Urine Color [place] 09/11/17 19:00 Urine Appearance Turbid 09/11/17 19:00 Urine pH 5.0 (5.0-8.0) 09/11/17 19:00 Ur Specific [place] 1.026 (1.001-1.035) 09/11/17 19:00 Urine Protein Negative (NEGATIVE) 09/11/17 19:00 Urine Glucose (UA) Negative (NEGATIVE) 09/11/17 19:00 Urine Ketones Negative (NEGATIVE) 09/11/17 19:00 Urine Blood 1+ (NEGATIVE) H 09/11/17 19:00 Urine Nitrite Positive (NEGATIVE) 09/11/17 19:00 Urine Bilirubin Negative (NEGATIVE) 09/11/17 19:00 Urine Urobilinogen 2.0 mg/dL (0.2-1.0) 09/11/17 19:00 Ur Leukocyte Esterase Negative (NEGATIVE) 09/11/17 19:00 Urine WBC (Auto) 8 /hpf (3-5) 09/11/17 19:00 Urine RBC (Auto) 14 /hpf (0-3) 09/11/17 19:00 Ur Epithelial Cells Rare /HPF (FEW) 09/11/17 19:00 Urine Bacteria Few /hpf (NONE SEEN) 09/11/17 19:00 Hyaline Casts 2 /lpf 09/11/17 19:00 Urine Mucus Many 09/11/17 19:00 Assessment: 09/14/17 10:42 WITHDRAWAL SX Plan: CONTINUE DETOX
[2017-09-14] MEDS: chlordiazePOXIDE HCL 10 MG CAPSULE PO SCH ×2 (17:48→22:04)
[2017-09-14] MEDS: THIAMINE HCL 100 MG TABLET (FP) PO SCH (22:04)
[2017-09-15] MEDS: chlordiazePOXIDE HCL 10 MG CAPSULE PO SCH ×2 (05:56→10:40)
[2017-09-15] MEDS ORDERED: METHADONE HCL 10 MG TABLET (FOR DETOX USE ONLY) PO SCH (10:00)
[2017-09-15] MEDS: PRENATAL VITAMINS W/ FOLIC ACID TABLET (FP) PO SCH (10:40)
[2017-09-15] MEDS: LEVOFLOXACIN 500 MG TABLET (FP) PO SCH (10:40)
--- NOTE | 2017-09-15 12:08 | PN ---
[facility] Progress Note (SOAP) Subjective: SLIGHT ANXIETY,SWEATS, INTERMITTENT SLEEP. Objective: 09/15/17 12:07 Vital Signs Temperature 96.8 F L 09/15/17 09:52 Pulse Rate 89 09/15/17 09:52 Respiratory Rate 18 09/15/17 09:52 Blood Pressure 111/65 09/15/17 09:52 O2 Sat by Pulse Oximetry (%) Laboratory Last Values Urine Color [place] 09/11/17 19:00 Urine Appearance Turbid 09/11/17 19:00 Urine pH 5.0 (5.0-8.0) 09/11/17 19:00 Ur Specific [place] 1.026 (1.001-1.035) 09/11/17 19:00 Urine Protein Negative (NEGATIVE) 09/11/17 19:00 Urine Glucose (UA) Negative (NEGATIVE) 09/11/17 19:00 Urine Ketones Negative (NEGATIVE) 09/11/17 19:00 Urine Blood 1+ (NEGATIVE) H 09/11/17 19:00 Urine Nitrite Positive (NEGATIVE) 09/11/17 19:00 Urine Bilirubin Negative (NEGATIVE) 09/11/17 19:00 Urine Urobilinogen 2.0 mg/dL (0.2-1.0) 09/11/17 19:00 Ur Leukocyte Esterase Negative (NEGATIVE) 09/11/17 19:00 Urine WBC (Auto) 8 /hpf (3-5) 09/11/17 19:00 Urine RBC (Auto) 14 /hpf (0-3) 09/11/17 19:00 Ur Epithelial Cells Rare /HPF (FEW) 09/11/17 19:00 Urine Bacteria Few /hpf (NONE SEEN) 09/11/17 19:00 Hyaline Casts 2 /lpf 09/11/17 19:00 Urine Mucus Many 09/11/17 19:00 Assessment: 09/15/17 12:08 WITHDRAWAL SX Plan: CONTINUE DETOX
[2017-09-15] MEDS: hydrOXYzine PAMOATE 25 MG CAPSULE (FP) PO PRN (22:14)
[2017-09-15] MEDS: THIAMINE HCL 100 MG TABLET (FP) PO SCH (22:14)
[2017-09-16] MEDS ORDERED: METHADONE HCL 5 MG TABLET (FOR DETOX USE ONLY) PO SCH (06:00)
[2017-09-16 09:57] VITALS: BP 106/65; PULSE 91; TEMP 95.9
--- NOTE | 2017-09-16 10:28 | DS ---
[facility] Detox Discharge Summary Admission Date: 09/11/17 Discharge Date: 09/16/17 - History Present History: Alcohol Dependence, Opioid Dependence Additional Comments: DETOX COMPLETED. ALERT O X 3. PT STATED HE IS GOING TO [facility] IN AN [facility]. Pertinent Past History: SEE DX BELOW - Physical Exam Results Vital Signs: Vital Signs Temperature 95.9 F L 09/16/17 09:55 Pulse Rate 91 H 09/16/17 09:55 Respiratory Rate 18 09/16/17 09:55 Blood Pressure 106/65 09/16/17 09:55 O2 Sat by Pulse Oximetry (%) Pertinent Admission Physical Exam Findings: WITHDRAWAL SX Laboratory Last Values Urine Color [place] 09/11/17 19:00 Urine Appearance Turbid 09/11/17 19:00 Urine pH 5.0 (5.0-8.0) 09/11/17 19:00 Ur Specific [place] 1.026 (1.001-1.035) 09/11/17 19:00 Urine Protein Negative (NEGATIVE) 09/11/17 19:00 Urine Glucose (UA) Negative (NEGATIVE) 09/11/17 19:00 Urine Ketones Negative (NEGATIVE) 09/11/17 19:00 Urine Blood 1+ (NEGATIVE) H 09/11/17 19:00 Urine Nitrite Positive (NEGATIVE) 09/11/17 19:00 Urine Bilirubin Negative (NEGATIVE) 09/11/17 19:00 Urine Urobilinogen 2.0 mg/dL (0.2-1.0) 09/11/17 19:00 Ur Leukocyte Esterase Negative (NEGATIVE) 09/11/17 19:00 Urine WBC (Auto) 8 /hpf (3-5) 09/11/17 19:00 Urine RBC (Auto) 14 /hpf (0-3) 09/11/17 19:00 Ur Epithelial Cells Rare /HPF (FEW) 09/11/17 19:00 Urine Bacteria Few /hpf (NONE SEEN) 09/11/17 19:00 Hyaline Casts 2 /lpf 09/11/17 19:00 Urine Mucus Many 09/11/17 19:00 UTI RULED OUT--UC WITH NO GROWTH PT REFUSED LABS ON ADMISSION PER LAB DOCUMENT. - Treatment Hospital Course: Detox Protocol Followed, Detoxed Safely, Responded well, Discharged Condition Good - Medication Discharge Medications: Ambulatory Orders NK [No Known Home Medication] 04/17/16 - Diagnosis (1) Alcohol dependence with uncomplicated withdrawal Current Visit: Yes Status: Acute (2) Opioid dependence with withdrawal Current Visit: Yes Status: Acute (3) Nicotine dependence Current Visit: Yes Status: Acute Qualifiers: Nicotine product type: cigarettes Substance use status: in withdrawal Qualified Code(s): F17.213 - Nicotine dependence, cigarettes, with withdrawal - AMA Did Patient Leave Against Medical Advice: No
== END 2017-09-16 09:32 | disposition home or self-care (01) | DRG 773 ==
LOC: YASAS 10:56 → Y3N 14:28
PROVIDERS: ADMIT Internal Medicine; ATTEND Internal Medicine
PROC: HZ2ZZZZ Detoxification Services for Substance Abuse Treatment (ICD-10-PCS; principal; 2017-09-11)
DX: F11.23 Opioid dependence with withdrawal (principal); F10.230 Alcohol dependence with withdrawal, uncomplicated; F17.213 Nicotine dependence, cigarettes, with withdrawal; N39.0 Urinary tract infection, site not specified; R63.3 Feeding difficulties; Z59.0 Homelessness
CPT/HCPCS: 81003; 81015; 87086; 93005; 93010

== ENCOUNTER 2017-09-23 10:54 | Inpatient (IN) | payer OTHER ==
[2017-09-23 11:26] VITALS: BMI 20.7
[2017-09-23] MEDS ORDERED: MAGNESIUM HYDROX 2400MG/30ML ORAL SUSPENSION 30 ML CUP PO PRN (11:28)
[2017-09-23] MEDS ORDERED: LOPERAMIDE HCL 2 MG CAPSULE PO PRN (11:28)
[2017-09-23] MEDS ORDERED: ACETAMINOPHEN 325 MG TABLET (FP) PO PRN (11:28)
[2017-09-23] MEDS ORDERED: MAGNESIUM CITRATE 300 ML BOTTLE PO PRN (11:28)
[2017-09-23] MEDS ORDERED: IBUPROFEN 400 MG TABLET (FP) PO PRN (11:28)
[2017-09-23] MEDS ORDERED: MAG HYDROX/AL HYDROX/SIMETH 30 ML UNIT-DOSE CUP PO PRN (11:28)
[2017-09-23] MEDS ORDERED: MENTHOL/PHENOL 1 EACH UD MM PRN (11:28)
[2017-09-23] MEDS ORDERED: NICOTINE POLACRILEX 2 MG GUM BUC PRN (11:28)
[2017-09-23] MEDS ORDERED: guaiFENesin/D-METHORPHAN HB 10 ML UNIT-DOSE CUPS PO PRN (11:28)
[2017-09-23] MEDS ORDERED: P-EPHED 60MG/TRIPROLIDI 2.5MG TABLET PO PRN (11:28)
--- NOTE | 2017-09-23 11:32 | HP ---
[facility] Rehab Assess/Revision - Admission History Admitted to Rehab from: [facility] Date of Admission to Rehab: 09/23/2017 - Vital signs Vital Signs: Vital Signs Period Temp Pulse Resp BP Sys/[place] Pulse Ox Last 24 Hr 96.2 F 77 18 135/81 - Findings Detox History & Physical reviewed: Yes Concur with findings: Yes Inpatient Rehab Admission - Initial Determination Are CD services needed?: Yes Free of communicable disease: Yes Not in need of hospitalization: Yes - Rehab Admission Criteria Lacks judgement: Yes Patient is meeting Inpatient Rehab admission criteria:: Yes
[2017-09-23 21:30] LABS: URINE APPEARANCE CLEAR; URINE BILIRUBIN NEGATIVE (NEGATIVE); URINE BLOOD NEGATIVE (NEGATIVE); URINE COLOR STRAW; URINE GLUCOSE (UA) NEGATIVE (NEGATIVE); URINE KETONE NEGATIVE (NEGATIVE); URINE LEUK ESTERASE NEGATIVE (NEGATIVE); URINE NITRITE NEGATIVE (NEGATIVE); URINE PROTEIN NEGATIVE (NEGATIVE); URINE UROBILINOGEN NEGATIVE mg/dL (0.2-1.0)
[2017-09-23] MEDS: THIAMINE HCL 100 MG TABLET (FP) PO SCH (21:41)
[2017-09-23] MEDS: hydrOXYzine PAMOATE 50 MG CAPSULE (FP) PO PRN (21:42)
[2017-09-24] MEDS: NICOTINE 14 MG/24 HOURS TOPICAL PATCH TD SCH (10:36)
[2017-09-24] MEDS: PRENATAL VITAMINS W/ FOLIC ACID TABLET (FP) PO SCH (10:36)
--- NOTE | 2017-09-24 10:55 | HP ---
Psychiatrist Admission - Data Date of interview: 09/24/17 Admission source: 3N Identifying data: This is the third inpatient rehbilitation admission for this 47 years old single male, father of 2 children, unemployed, he is domiciled living with his brother. Medical History: History of oral surgery for fructute of jaw(wires and screw to upper jaw). Psychiatric History: Patient reports no history of psychiatric treatment. Physical/Sexual Abuse/Trauma History: Denies history of sexual, physical and verbla abuse. Additional Comment: Reports that his 3 weeks old grandson was killed in 2016, reports he never processed this loss. Vital Signs: Vital Signs - 24 hr 09/23/17 09/23/17 09/24/17 11:25 15:14 00:30 Temperature 96.2 F L 98.4 F Pulse Rate 77 77 Respiratory 18 18 16 Rate Blood Pressure 135/81 128/89 09/24/17 09/24/17 03:30 06:54 Temperature 97.0 F L Pulse Rate 64 Respiratory 16 16 Rate Blood Pressure 133/86 Allergies/Adverse Reactions: Allergies Allergy/AdvReac Type Severity Reaction Status Date / Time No Known Allergies Allergy Verified 09/23/17 11:10 Date of last physical exam: 09/12/17 Concur with the findings of this exam: Yes - Substance Abuse/Tx History Hx Alcohol Use: Yes Hx Substance Use: Yes Substance Use Type: Alcohol ("sometimes"), Heroin (6-7 bags daily injecting and inhaling) Hx Substance Use Treatment: Yes Mental Status Exam - Mental Status Exam Alert and Oriented to: Time, Place, Person Cognitive Function: Good Patient Appearance: Well Groomed Mood: Sad Affect: Appropriate, Mood Congruent Patient Behavior: Appropriate, Cooperative Speech Pattern: Clear, Appropriate Voice Loudness: Normal Thought Process: Intact, Goal Oriented Thought Disorder: Not Present Hallucinations: Denies Suicidal Ideation: Denies Homicidal Ideation: Denies Insight/Judgement: Fair Sleep: Fair Appetite: Good Muscle strength/Tone: Normal Gait/Station: Normal Psychiatric Findings - Problem List ([place] 1, 2,3) (1) Alcohol dependence Current Visit: Yes Status: Acute (2) Opioid dependence Current Visit: Yes Status: Acute (3) Drug-induced mood disorder Current Visit: No Status: Acute - Initial Treatment Plan Initial Treatment Plan: Supportive therapy and psychoeducation provided, will monitor prgress as needed.
[2017-09-24] MEDS: THIAMINE HCL 100 MG TABLET (FP) PO SCH (21:45)
[2017-09-25] MEDS: hydrOXYzine PAMOATE 50 MG CAPSULE (FP) PO PRN (00:12)
[2017-09-25] MEDS: PRENATAL VITAMINS W/ FOLIC ACID TABLET (FP) PO SCH (10:54)
[2017-09-25] MEDS: NICOTINE 14 MG/24 HOURS TOPICAL PATCH TD SCH (10:54)
[2017-09-25] MEDS: THIAMINE HCL 100 MG TABLET (FP) PO SCH (22:21)
[2017-09-26] MEDS: NICOTINE 14 MG/24 HOURS TOPICAL PATCH TD SCH (11:04)
[2017-09-26] MEDS: PRENATAL VITAMINS W/ FOLIC ACID TABLET (FP) PO SCH (11:04)
--- NOTE | 2017-09-26 13:28 | EKG ---
Test Reason : Blood Pressure : / mmHG Vent. Rate : 082 BPM Atrial Rate : 082 BPM P-R Int : 130 ms QRS Dur : 092 ms QT Int : 366 ms P-R-T Axes : 067 -15 041 degrees QTc Int : 427 ms NORMAL SINUS RHYTHM NORMAL ECG WHEN COMPARED WITH ECG OF 11-SEP-2017 16:05, NO SIGNIFICANT CHANGE WAS FOUND BASELINE ARTIFACT Confirmed by CECILIA PRATT MD ([id number]) on 09/26/2017 1:28:21 PM Referred By: Confirmed By:CECILIA PRATT MD
[2017-09-26] MEDS: THIAMINE HCL 100 MG TABLET (FP) PO SCH (21:49)
[2017-09-26] MEDS: hydrOXYzine PAMOATE 50 MG CAPSULE (FP) PO PRN (21:50)
[2017-09-27] MEDS: PRENATAL VITAMINS W/ FOLIC ACID TABLET (FP) PO SCH (10:27)
[2017-09-27] MEDS: NICOTINE 14 MG/24 HOURS TOPICAL PATCH TD SCH (10:27)
[2017-09-27] MEDS: THIAMINE HCL 100 MG TABLET (FP) PO SCH (21:52)
[2017-09-27] MEDS: hydrOXYzine PAMOATE 50 MG CAPSULE (FP) PO PRN (21:53)
[2017-09-28] MEDS: NICOTINE 14 MG/24 HOURS TOPICAL PATCH TD SCH (10:50)
[2017-09-28] MEDS: PRENATAL VITAMINS W/ FOLIC ACID TABLET (FP) PO SCH ×2 (10:51→11:00)
--- NOTE | 2017-09-28 15:37 | PN ---
[facility] Progress Note (SOAP) Subjective: c/p protrqcted opioid withdrwal sx fatigue, depression,anxiety and insomnia Objective: 09/28/17 15:35 Vital Signs - 24 hr 09/28/17 09/28/17 00:30 06:45 Temperature 97.4 F L Pulse Rate 69 Respiratory 18 16 Rate Blood Pressure 119/75 Vital Signs - 24 hr 09/28/17 09/28/17 00:30 06:45 Temperature 97.4 F L Pulse Rate 69 Respiratory 18 16 Rate Blood Pressure 119/75 Laboratory Tests 09/23/17 15:10 Urine Color Straw Urine Appearance Clear Urine pH 6.0 Ur Specific [place] 1.002 Urine Protein Negative Urine Glucose (UA) Negative Urine Ketones Negative Urine Blood Negative Urine Nitrite Negative Urine Bilirubin Negative Urine Urobilinogen Negative Ur Leukocyte Esterase Negative labs reviewed Assessment: 09/28/17 15:36 start suboxone 2mg dialy, referred to [facility] for f/u care, Jay WILL DISCUSS WITH COUNSELOR.
[2017-09-28] MEDS: BUPRENORPHINE/NALOXONE 2 MG/0.5 MG FILM PACKET SL SCH (15:57)
[2017-09-28] MEDS: cloNIDine HCL 0.1 MG TABLET PO SCH (21:31)
[2017-09-28] MEDS: THIAMINE HCL 100 MG TABLET (FP) PO SCH (21:31)
[2017-09-28] MEDS: hydrOXYzine PAMOATE 50 MG CAPSULE (FP) PO PRN (21:32)
[2017-09-29] MEDS: NICOTINE 14 MG/24 HOURS TOPICAL PATCH TD SCH (10:35)
[2017-09-29] MEDS: PRENATAL VITAMINS W/ FOLIC ACID TABLET (FP) PO SCH (10:35)
[2017-09-29] MEDS: cloNIDine HCL 0.1 MG TABLET PO SCH ×2 (10:35→21:50)
[2017-09-29] MEDS: BUPRENORPHINE/NALOXONE 2 MG/0.5 MG FILM PACKET SL SCH (10:35)
[2017-09-29] MEDS: THIAMINE HCL 100 MG TABLET (FP) PO SCH (21:50)
[2017-09-30] MEDS: PRENATAL VITAMINS W/ FOLIC ACID TABLET (FP) PO SCH (09:57)
[2017-09-30] MEDS: cloNIDine HCL 0.1 MG TABLET PO SCH ×2 (09:57→22:03)
[2017-09-30] MEDS: BUPRENORPHINE/NALOXONE 2 MG/0.5 MG FILM PACKET SL SCH (09:57)
[2017-09-30] MEDS: NICOTINE 14 MG/24 HOURS TOPICAL PATCH TD SCH (09:57)
[2017-09-30] MEDS: THIAMINE HCL 100 MG TABLET (FP) PO SCH (22:03)
[2017-10-01] MEDS: NICOTINE 14 MG/24 HOURS TOPICAL PATCH TD SCH (09:38)
[2017-10-01] MEDS: PRENATAL VITAMINS W/ FOLIC ACID TABLET (FP) PO SCH (09:38)
[2017-10-01] MEDS: BUPRENORPHINE/NALOXONE 2 MG/0.5 MG FILM PACKET SL SCH (09:39)
[2017-10-01] MEDS: cloNIDine HCL 0.1 MG TABLET PO SCH ×2 (09:40→21:34)
[2017-10-01] MEDS: THIAMINE HCL 100 MG TABLET (FP) PO SCH (21:34)
[2017-10-02] MEDS: PRENATAL VITAMINS W/ FOLIC ACID TABLET (FP) PO SCH (10:32)
[2017-10-02] MEDS: NICOTINE 14 MG/24 HOURS TOPICAL PATCH TD SCH (10:33)
[2017-10-02] MEDS: BUPRENORPHINE/NALOXONE 2 MG/0.5 MG FILM PACKET SL SCH (10:33)
[2017-10-02] MEDS: cloNIDine HCL 0.1 MG TABLET PO SCH ×2 (10:33→21:49)
[2017-10-02] MEDS: THIAMINE HCL 100 MG TABLET (FP) PO SCH (23:29)
[2017-10-03] MEDS: BUPRENORPHINE/NALOXONE 2 MG/0.5 MG FILM PACKET SL SCH (10:23)
[2017-10-03] MEDS: PRENATAL VITAMINS W/ FOLIC ACID TABLET (FP) PO SCH (10:23)
[2017-10-03] MEDS: cloNIDine HCL 0.1 MG TABLET PO SCH ×2 (10:23→21:49)
[2017-10-03] MEDS: NICOTINE 14 MG/24 HOURS TOPICAL PATCH TD SCH (10:24)
[2017-10-03] MEDS: THIAMINE HCL 100 MG TABLET (FP) PO SCH (21:49)
[2017-10-04] MEDS: cloNIDine HCL 0.1 MG TABLET PO SCH ×2 (10:05→21:37)
[2017-10-04] MEDS: PRENATAL VITAMINS W/ FOLIC ACID TABLET (FP) PO SCH (10:05)
[2017-10-04] MEDS: NICOTINE 14 MG/24 HOURS TOPICAL PATCH TD SCH (10:06)
[2017-10-04] MEDS: BUPRENORPHINE/NALOXONE 2 MG/0.5 MG FILM PACKET SL SCH (10:06)
[2017-10-04] MEDS: THIAMINE HCL 100 MG TABLET (FP) PO SCH (21:38)
[2017-10-05] MEDS: PRENATAL VITAMINS W/ FOLIC ACID TABLET (FP) PO SCH (10:27)
[2017-10-05] MEDS: BUPRENORPHINE/NALOXONE 2 MG/0.5 MG FILM PACKET SL SCH (10:27)
[2017-10-05] MEDS: cloNIDine HCL 0.1 MG TABLET PO SCH ×2 (10:28→21:41)
[2017-10-05] MEDS: NICOTINE 14 MG/24 HOURS TOPICAL PATCH TD SCH (10:28)
[2017-10-05] MEDS: THIAMINE HCL 100 MG TABLET (FP) PO SCH (21:41)
[2017-10-06] MEDS: cloNIDine HCL 0.1 MG TABLET PO SCH ×2 (10:56→21:45)
[2017-10-06] MEDS: PRENATAL VITAMINS W/ FOLIC ACID TABLET (FP) PO SCH (10:56)
[2017-10-06] MEDS: NICOTINE 14 MG/24 HOURS TOPICAL PATCH TD SCH (10:56)
[2017-10-06] MEDS ORDERED: BUPRENORPHINE/NALOXONE 2 MG/0.5 MG FILM PACKET SL SCH (14:10)
[2017-10-06] MEDS: THIAMINE HCL 100 MG TABLET (FP) PO SCH (21:45)
[2017-10-07] MEDS: hydrOXYzine PAMOATE 50 MG CAPSULE (FP) PO PRN (01:44)
[2017-10-07 07:16] VITALS: BP 120/74; PULSE 74; TEMP 97.6
--- NOTE | 2017-10-07 09:55 | PN ---
S Progress Note (SOAP) Subjective: relief of faigue with 2mg suboxone daily has arranged for outpat program on discharge Objective: 10/07/17 09:54 Vital Signs - 24 hr 10/06/17 10/07/17 10/07/17 10:00 07:13 07:15 Temperature 97.4 F L 97.6 F Pulse Rate 64 63 74 Respiratory 20 18 16 Rate Blood Pressure 110/68 152/52 120/74 Laboratory Tests 09/23/17 15:10 Urine Color Straw Urine Appearance Clear Urine pH 6.0 Ur Specific [place] 1.002 Urine Protein Negative Urine Glucose (UA) Negative Urine Ketones Negative Urine Blood Negative Urine Nitrite Negative Urine Bilirubin Negative Urine Urobilinogen Negative Ur Leukocyte Esterase Negative labs reveiwed Assessment: 10/07/17 09:54 oud cont mat with suboxone increase dose to 4mg daily to treat depressiona and anxiety, follow up appt made by counselor.
[2017-10-07] MEDS ORDERED: BUPRENORPHINE/NALOXONE 2 MG/0.5 MG FILM PACKET SL SCH (10:00)
[2017-10-07] MEDS: cloNIDine HCL 0.1 MG TABLET PO SCH (10:26)
[2017-10-07] MEDS: PRENATAL VITAMINS W/ FOLIC ACID TABLET (FP) PO SCH (10:26)
[2017-10-07] MEDS: NICOTINE 14 MG/24 HOURS TOPICAL PATCH TD SCH (10:26)
--- NOTE | 2017-10-07 10:43 | PN ---
Psychiatric Progress Note Vital Signs: Vital Signs Period Temp Pulse Resp BP Sys/[place] Pulse Ox Last 24 Hr 97.4 F-97.6 F 63-74 16-18 120-152/52-74 Date of Session: 10/07/17 Chief Complaint:: discharge visit HPI: Patient has addressed alcohol, opioid dependence comorbid drug induced mood disorder. ROS: WNL Current Medications: Active Medications Generic Name Dose Route Start Last Admin Trade Name Freq PRN Reason Stop Dose Admin Acetaminophen 650 mg 09/23/17 11:28 Tylenol - PO Q4H PRN FEVER Al Hydroxide/Mg Hydroxide 30 ml 09/23/17 11:28 Mylanta Oral Suspension - PO Q6H PRN DYSPEPSIA Buprenorphine/Naloxone 2 each 10/07/17 10:00 10/07/17 10:26 Suboxone 2mg/0.5mg Sl Film - SL 10/13/17 09:59 2 each DAILY HUAN Administration Clonidine 0.1 mg 09/28/17 22:00 10/07/17 10:26 Catapres - PO Not Given BID HUAN Eucalyptus/Menthol/Phenol/Sorbitol 1 each 09/23/17 11:28 Cepastat Lozenge - MM Q4H PRN SORE THROAT Guaifenesin 10 ml 09/23/17 11:28 Robitussin Dm - PO Q6H PRN COUGH Hydroxyzine Pamoate 50 mg 09/23/17 11:28 10/07/17 01:44 Vistaril - PO 50 mg Q4H PRN Administration AGITATION Ibuprofen 400 mg 09/23/17 11:28 Motrin - PO Q6H PRN Pain Level 4-6 Loperamide HCl 4 mg 09/23/17 11:28 Imodium - PO Q6H PRN DIARRHEA Magnesium Citrate 300 ml 09/23/17 11:28 Citroma - PO Q48H PRN CONSTIPATION Magnesium Hydroxide 30 ml 09/23/17 11:28 Milk Of Magnesia - PO DAILY PRN CONSTIPATION Nicotine 14 mg 09/24/17 10:00 10/07/17 10:26 Nicoderm Patch - TD Not Given DAILY HUAN Nicotine Polacrilex 2 mg 09/23/17 11:28 Nicorette Gum - BUC Q2H PRN NICOTINE REPLACEMENT RX Multivit/Folic Acid/Iron 1 tab 09/24/17 10:00 10/07/17 10:26 Vitamins (Sjr) - PO 1 tab DAILY HUAN Administration Pseudoephedrine/Triprolidine 1 combo 09/23/17 11:28 Actifed - PO TID PRN NASAL CONGESTION Thiamine HCl 100 mg 09/23/17 22:00 10/06/17 21:45 Vitamin B1 - PO Not Given HS HUAN Current Side Effect: No Lab tests ordered: No Lab tests reviewed: Yes Provider note:: Patient has completed today this rehabilitation treatment and met his goals, will ramy to address his issues at [facility] outpatient treatment program. He verbalized understanding the negative impact of drugs/ alcohol over his major life areas, he is motivated to continue maintain abstinence. Patient was encouraged to utilize all supports to prevent relapses. Patient is stable for disocarge today. Total face to face time:: 20 Mental Status Exam - Mental Status Exam Alert and Oriented to: Time, Place, Person Cognitive Function: Good Patient Appearance: Well Groomed Mood: Hopeful Affect: Appropriate, Mood Congruent Patient Behavior: Appropriate, Cooperative Speech Pattern: Clear, Appropriate Voice Loudness: Normal Thought Process: Goal Oriented Thought Disorder: Not Present Hallucinations: Denies Suicidal Ideation: Denies Homicidal Ideation: Denies Insight/Judgement: Fair Sleep: Fair Appetite: Fair Muscle strength/Tone: Normal Gait/Station: Normal Psychiatric Treatment Plan - Problem List (1) Alcohol dependence Current Visit: Yes (2) Opioid dependence Current Visit: Yes (3) Drug-induced mood disorder Current Visit: No
== END 2017-10-07 11:15 | disposition home or self-care (01) | DRG 772 ==
LOC: YASAS 10:54 → Y5N 12:06
PROVIDERS: ADMIT Psychiatry & Neurology Psychiatry; ATTEND Psychiatry & Neurology Psychiatry
PROC: HZ42ZZZ Group Counseling for Substance Abuse Treatment, Cognitive-Behavioral (ICD-10-PCS; principal; 2017-09-23)
DX: F11.20 Opioid dependence, uncomplicated (principal); F10.20 Alcohol dependence, uncomplicated; F19.24 Other psychoactive substance dependence with psychoactive substance-induced mood disorder
CPT/HCPCS: 81003; 93005; 93010; J0735